=== PATIENT | female | born 1940 | race Caucasian/White ===

== ENCOUNTER → 2018-06-01 | Outpatient (CLI) | payer MEDICARE, OTHER | LOC: MC.RAD 11:59 | DX: Z12.31 Encounter for screening mammogram for malignant neoplasm of breast (principal) ==

== ENCOUNTER → 2019-06-03 | Outpatient (CLI) | payer MEDICARE, OTHER | LOC: MC.RAD 07:21 | DX: Z12.31 Encounter for screening mammogram for malignant neoplasm of breast (principal) ==

== ENCOUNTER → 2020-02-01 | Outpatient (CLI) | payer MEDICARE, OTHER | LOC: COL.RAD 13:45 | DX: Z01.812 Encounter for preprocedural laboratory examination (principal); J18.1 Lobar pneumonia, unspecified organism; R91.8 Other nonspecific abnormal finding of lung field; R59.0 Localized enlarged lymph nodes | CPT/HCPCS: Q9967 ==

== ENCOUNTER 2020-02-04 15:37 | Emergency (ER) | payer MEDICARE, OTHER ==
[~2020-02-04] VITALS: Ht 160 cm; Wt 76.4 kg
[2020-02-04 15:53] VITALS: TEMP 98.1
[2020-02-04 16:22] LABS: HEMATOCRIT 36.9 % (37.0-47.0); HEMOGLOBIN 11.8 g/dl (12.5-16.0); MEAN CELL VOLUME 83 fl (80.0-100.0); MEAN CORPUSCULAR HEMOGLOBIN 27 pg (27.0-31.0); MEAN CORPUSCULAR HGB CONC 32 g/dl (33.0-37.0); MEAN PLATELET VOLUME 9.6 fl (7.4-10.4); PLATELET COUNT 488 K/mm3 (130-400); RED BLOOD COUNT 4.45 M/mm3 (4.10-5.30); REDCELL DISTRIBUTION WIDTH-CV 15.6 % (11.5-14.5)
[2020-02-04 16:38] LABS: ALANINE AMINOTRANSFERASE 69 U/L (4-34); ALBUMIN 3.6 gm/dL (3.5-5.0); ALKALINE PHOSPHATASE 169 U/L (50-136); ANION GAP 9 mmol/L (7-16); AST,SGOT 63 U/L (15-37); BILIRUBIN,TOTAL 0.4 mg/dL (0.0-1.0); BLOOD UREA NITROGEN 14 mg/dL (7-17); CALCIUM 9.3 mg/dL (8.4-10.2); CARBON DIOXIDE 26 mmol/L (22-30); CHLORIDE 100 mmol/L (98-107); GLUCOSE 185 mg/dL (74-106); POTASSIUM 3.3 mmol/L (3.4-5.0); SODIUM 136 mmol/L (137-145); TOTAL PROTEIN 7.2 gm/dL (6.4-8.2)
[2020-02-04 16:50] LABS: TROPONIN-I < 0.012 ng/mL (0.000-0.035)
[2020-02-04 16:52] LABS: BAND 5 % (0-10); LYMPHOCYTE 16 % (20.0-51.0); MYELOCYTE 1 % (0-0); NEUTROPHILS 73 % (42.0-75.2); PLATELET ESTIMATE INCREASED (NORMAL)
[2020-02-04] MEDS ORDERED: DOXYCYCLINE 10100 MG PO (17:08)
[2020-02-04] MEDS ORDERED: LEVAQUIN 750MG750 M1 PO (17:08)
[2020-02-04] MEDS ORDERED: GLUCOPHAGE500 MG/TAB PO (17:09)
[2020-02-04] MEDS ORDERED: CELEBREX 1100 MG/CAP PO (17:09)
[2020-02-04] MEDS ORDERED: SYNTHROID0.088 MG/T PO (17:09)
[2020-02-04] MEDS ORDERED: PROMETHAZINE12.5 M5 PO (18:08)
[2020-02-04] MEDS ORDERED: K-DUR20 MEQ PO (18:08)
[2020-02-04 18:20] VITALS: BP 155/71; PULSE 68
== END 2020-02-04 18:20 | disposition home or self-care (01) ==
LOC: COL.ER 15:37
PROVIDERS: Emergency Medicine
DX: J18.9 Pneumonia, unspecified organism (principal); R11.2 Nausea with vomiting, unspecified; E87.6 Hypokalemia; E11.9 Type 2 diabetes mellitus without complications; Z79.84 Long term (current) use of oral hypoglycemic drugs
CPT/HCPCS: J2405; J7030

== ENCOUNTER 2020-02-10 06:59 | Day surgery (SDC) | payer MEDICARE, OTHER ==
[~2020-02-10] VITALS: Ht 161.3 cm; Wt 76.6 kg
[~2020-02-10 06:59] MED LIST: CELEBREX 1100 MG/CAP PO; DOXYCYCLINE 10100 MG PO; GLUCOPHAGE500 MG/TAB PO; K-DUR20 MEQ PO; LEVAQUIN 750MG750 M1 PO; PROMETHAZINE12.5 M5 PO; SYNTHROID0.088 MG/T PO
[2020-02-10 07:34] VITALS: BP 144/70; PULSE 68; TEMP 97.5
[2020-02-10] MEDS ORDERED: CALCIUM 600 PLU1 TAB PO (07:44)
[2020-02-10] MEDS ORDERED: MULTI VITAMINS1 TAB PO (07:45)
[2020-02-10] MEDS ORDERED: PROBIOTIC FORMU1 CAP PO (07:46)
--- NOTE | 2020-02-10 07:47 | NUR ---
PATIENT STATED SHE STOPPED TAKING MANY OF HER MEDS DUE TO HER BEING SICK AND NOT ABLE TO KEEP ANYTHING DOWN. CALL LIGHT IN REACH DAUGHTER AT BEDSIDE.
[2020-02-10 09:15] VITALS: BP 118/73; PULSE 77; TEMP 97.5
--- NOTE | 2020-02-10 09:15 | NUR ---
TO RM 8 PER CART FROM ENDOSCOPY. ALERT ORIENTED X3, TALKING TO STAFF AND HER DAUGHTER. NONPRODUCTIVE COUGH. RESPIRATIOINS EVEN AND NONLABORED RECEIVED WATER.
[2020-02-10 09:30] VITALS: BP 126/95; PULSE 66
--- NOTE | 2020-02-10 09:30 | NUR ---
RECEIVED 2ND CUP OF WATER, REFUSED ANYTHING TO EAT.
[2020-02-10 09:45] VITALS: BP 108/91; PULSE 59
[2020-02-10 10:00] VITALS: BP 133/71; PULSE 64
--- NOTE | 2020-02-10 10:00 | NUR ---
RECEIVED 3RD CUP OF WATER. LESS COUGH.
--- NOTE | 2020-02-10 10:15 | NUR ---
RECEIVED DISCHARGE INSTRUCTIONS AND VERBALIZED UNDERSTANDING. DISCONTINUED IV AND INT- CATHETER INTACT. PATIENT GETTING DRESSED
--- NOTE | 2020-02-10 10:30 | NUR ---
DISCHARGED PER WC BY NURSING STAFF TO PRIVATE CAR IN CARE OF DAUGHTER- [facility]
== END 2020-02-10 11:07 | disposition home or self-care (01) ==
LOC: SDCO 06:59
DX: J18.1 Lobar pneumonia, unspecified organism (principal); J98.11 Atelectasis; J42 Unspecified chronic bronchitis; E11.9 Type 2 diabetes mellitus without complications; I38 Endocarditis, valve unspecified; E03.9 Hypothyroidism, unspecified; M06.9 Rheumatoid arthritis, unspecified; Z79.899 Other long term (current) drug therapy; Z77.22 Contact with and (suspected) exposure to environmental tobacco smoke (acute) (chronic); Z79.84 Long term (current) use of oral hypoglycemic drugs; Z20.1 Contact with and (suspected) exposure to tuberculosis
CPT/HCPCS: J2704; J7030

== ENCOUNTER → 2020-06-06 | Outpatient (CLI) | payer MEDICARE, OTHER ==
[~2020-06-06] MED LIST changes: +CALCIUM 600 PLU1 TAB PO; +MULTI VITAMINS1 TAB PO; +PROBIOTIC FORMU1 CAP PO
== END ==
LOC: MC.RAD 06-04 11:00
DX: Z12.31 Encounter for screening mammogram for malignant neoplasm of breast (principal)

== ENCOUNTER → 2021-06-07 | Outpatient (CLI) | payer MEDICARE, OTHER | LOC: MC.RAD 11:15 | DX: Z12.31 Encounter for screening mammogram for malignant neoplasm of breast (principal) ==

== ENCOUNTER → 2023-06-30 | Outpatient (CLI) | payer MEDICARE, OTHER | LOC: MC.RAD 09:45 | DX: Z12.31 Encounter for screening mammogram for malignant neoplasm of breast (principal) ==

== ENCOUNTER → 2024-07-08 | Outpatient (CLI) | payer MEDICARE, OTHER | LOC: MC.RAD 10:53 | DX: Z12.31 Encounter for screening mammogram for malignant neoplasm of breast (principal) ==